=== PATIENT | female | born 1945 | race Caucasian/White ===

== ENCOUNTER 2016-08-21 15:44 | Inpatient (IN) | payer OTHER ==
[~2016-08-21] VITALS: Ht 157.5 cm; Wt 77.0 kg
[~2016-08-21 15:44] MED LIST: ALPHAGAN P100 DROP/5 BOTH EYES; AMLODIPINE BESY10 MG PO; BUMEX2 MG PO; CLONIDINE HCL0.1 MG PO; CRESTOR40 MG PO; ERGOCALCIF50000 UNIT PO; FISH OIL CONC1000 M1 PO; HYDROCHLOROTHIA25 MG PO; LANTUS 3 M100 UNITS1 SC; LISINOPRIL40 MG PO; NOVOLOG PE100 UNITS/ SC; POTASSIUM CHLO20 ME1 PO; PROAIR HFA8.5 GM IH; SERTRALINE HCL100 MG PO; TENORMIN25 MG PO; ZETIA10 MG PO
[2016-08-21] MEDS ORDERED: NORVASC5 MG PO (16:18)
[2016-08-21] MEDS ORDERED: ZOLOFT100 MG PO (16:19)
[2016-08-21] MEDS ORDERED: AGGRENOX1 CAPSULE PO (16:20)
[2016-08-21] MEDS ORDERED: KLOR-CON SPRIN10 MEQ PO (16:21)
[2016-08-21] MEDS ORDERED: NEURONTIN300 MG PO (16:22)
[2016-08-21] MEDS ORDERED: LANTUS 3 M100 UNITS1 SC (16:23)
[2016-08-21] MEDS ORDERED: NOVOLOG MI100 UNIT/M SQ (16:24)
[2016-08-21 17:44] LABS: EOSINOPHIL (%) 0.6 % (0-5); EOSINOPHIL COUNT 0.1 K/uL (0-0.3); HEMATOCRIT 30.1 % (36.0-46.0); IMMATURE GRANULOCYTE (%) 0.1 % (0.0-0.7); IMMATURE GRANULOCYTE COUNT 0.1 K/uL; LYMPHOCYTE COUNT 1.7 K/uL (1.0-2.8); MCH 32.3 PG (29.0-34.0); MCHC 34.6 G/DL (30.0-36.0); MCV 93.5 FL (83-99); MEAN PLAT.VOLUME 9.5 uM^3 (9.5-12.4); MONOCYTE COUNT 0.5 K/uL (0-0.8); NEUTROPHIL (%) 73.7 % (45-76); NEUTROPHIL COUNT 6.6 K/uL (1.8-6.4); PLATELET COUNT 189 K/uL (156-360); RBC DIS.WIDTH-CV 12.9 % (11.8-14.6); RBC DIS.WIDTH-SD 42.7 % (39-53); RED BLOOD COUNT 3.22 M/uL (3.80-5.20)
[2016-08-21 17:58] LABS: CHLORIDE 105 mEq/L (99-109); POTASSIUM 3.9 mEq/L (3.7-5.4); SODIUM 137 mEq/L (136-147)
[2016-08-21 18:00] LABS: GLUCOSE 288 mg/dL (70-99)
[2016-08-21 18:02] LABS: ANION GAP 12 MEQ/L (2-14); TOTAL BILIRUBIN 0.3 mg/dL (0.0-1.0)
[2016-08-21 18:04] LABS: ALKALINE PHOSPHATASE 52 IU/L (3-129); GFR ESTIMATE (CALCULATED) 19 mL/min/
[2016-08-21 18:05] LABS: UREA NITROGEN (BUN) 27 mg/dL (9-23)
[2016-08-21 18:08] LABS: TROP-I INTERPRETATION POSITIVE
[2016-08-21 18:09] LABS: TROPONIN-I 4.94 ng/mL (0.0-0.30)
[2016-08-21] MEDS ORDERED: ASPERCREME HE70.8 GM TP (18:51)
[2016-08-21 19:16] LABS: INTER. NORMALIZED RATIO 1.1; PTT 21.5 (25-32)
[2016-08-21 20:23] VITALS: BP 186/74
[2016-08-21 21:46] LABS: ALKALINE PHOSPHATASE 41 IU/L (3-129); ANION GAP 9 MEQ/L (2-14); CHLORIDE 105 MEQ/L (99-109); GFR ESTIMATE (CALCULATED) 22 mL/min/; GLUCOSE 202 mg/dL (70-99); POTASSIUM 3.8 MEQ/L (3.7-5.4); SAMPLE HEMOLYSIS CHECK 0; SAMPLE ICTERIC CHECK 0; SAMPLE LIPEMIA CHECK 0; SODIUM 137 MEQ/L (136-147); TOTAL BILIRUBIN 0.3 MG/DL (0.0-1.0); UREA NITROGEN (BUN) 26 mg/dL (9-23)
[2016-08-21 22:54] LABS: POINT-OF-CARE METER ID UU13113781
[2016-08-21 23:30] VITALS: BP 164/74
[2016-08-22 01:04] LABS: TROP-I INTERPRETATION POSITIVE
[2016-08-22 01:08] LABS: TROPONIN-I 4.13 ng/mL (0.0-0.30)
[2016-08-22 03:50] VITALS: BP 156/70
[2016-08-22 06:51] LABS: MCH 31.8 PG (29.0-34.0); MCHC 34.3 G/DL (30.0-36.0); MCV 92.7 FL (83-99); MEAN PLAT.VOLUME 9.7 uM^3 (9.5-12.4); PLATELET COUNT 178 K/uL (156-360); RBC DIS.WIDTH-CV 13.5 % (11.8-14.6); RBC DIS.WIDTH-SD 45.6 % (39-53); RED BLOOD COUNT 3.02 M/uL (3.80-5.20); WHITE BLOOD COUNT 7.5 K/uL (4.1-10.2)
[2016-08-22 07:00] VITALS: BP 186/73
[2016-08-22 07:14] LABS: TROP-I INTERPRETATION POSITIVE
[2016-08-22 07:16] LABS: TROPONIN-I 3.23 ng/mL (0.0-0.30)
[2016-08-22 08:36] LABS: ANION GAP 6 MEQ/L (2-14); CHLORIDE 106 MEQ/L (99-109); GFR ESTIMATE (CALCULATED) 20 mL/min/; POTASSIUM 3.3 MEQ/L (3.7-5.4); SAMPLE HEMOLYSIS CHECK 0; SAMPLE ICTERIC CHECK 0; SAMPLE LIPEMIA CHECK 0; SODIUM 140 MEQ/L (136-147); UREA NITROGEN (BUN) 25 mg/dL (9-23)
[2016-08-22 08:37] LABS: GLUCOSE 67 mg/dL (70-99)
[2016-08-22 11:25] LABS: POINT-OF-CARE METER ID UU14174216
[2016-08-22 11:30] VITALS: BP 167/68
[2016-08-22 13:09] LABS: CK-MB 7.9 ng/mL (0.0-4.9)
[2016-08-22 13:33] LABS: HDL CHOLESTEROL 42 MG/DL (Desirable>=50); LDL CHOLESTEROL 31 mg/dL (Desirable<100); NON-HDL CHOLESTEROL 49 mg/dL (Desirable<160); TOTAL CHOLESTEROL 91 mg/dL (Desirable<200); TRIGLYCERIDES 90 MG/DL (Normal: <150)
[2016-08-22 14:58] LABS: CREATINE KINASE 233 IU/L (1-294); TOTAL CK 233 IU/L (1-294)
[2016-08-22 16:30] VITALS: BP 170/74
[2016-08-22 16:37] LABS: ADD MIUA? YES; BILIRUBIN NEGATIVE; BLOOD SMALL; COLOR YELLOW ((YELLOW)); GLUCOSE (STRIP) 250; KETONES NEGATIVE; LEUKOCYTES NEGATIVE; NITRITE NEGATIVE; PH, URINE 5.5 (5-8); PROTEIN (STRIP) 300; UROBILINOGEN 0.2 MG/DL (0.2-1.0)
[2016-08-22 16:39] LABS: BACTERIA NONE SEEN; CASTS NONE SEEN /LPF; CRYSTALS NONE SEEN; EPITHELIAL CELLS 1+; MUCUS NONE SEEN; PATHOLOGICAL CAST NONE SEEN; SMALL ROUND CELL NONE SEEN; UCUL ADDED? NO; WHITE BLOOD CELLS 0-5 /HPF (0-5); YEAST-LIKE CELL NONE SEEN
[2016-08-22 16:44] LABS: POINT-OF-CARE METER ID UU14174216
[2016-08-22 19:45] VITALS: BP 164/76
[2016-08-22 21:10] LABS: POINT-OF-CARE METER ID UU14174216
[2016-08-22 23:00] VITALS: BP 146/64
[2016-08-23 03:00] VITALS: BP 174/60
[2016-08-23 04:01] LABS: EOSINOPHIL (%) 4.4 % (0-5); EOSINOPHIL COUNT 0.4 K/uL (0-0.3); HEMATOCRIT 26.7 % (36.0-46.0); IMMATURE GRANULOCYTE (%) 0.1 % (0.0-0.7); IMMATURE GRANULOCYTE COUNT 0.1 K/uL; LYMPHOCYTE COUNT 4.1 K/uL (1.0-2.8); MCH 31.7 PG (29.0-34.0); MCHC 33.3 G/DL (30.0-36.0); MEAN PLAT.VOLUME 10.1 uM^3 (9.5-12.4); MONOCYTE (%) 6.8 % (3-12); MONOCYTE COUNT 0.6 K/uL (0-0.8); NEUTROPHIL (%) 44.2 % (45-76); NEUTROPHIL COUNT 4.1 K/uL (1.8-6.4); PLATELET COUNT 201 K/uL (156-360); RBC DIS.WIDTH-CV 13.3 % (11.8-14.6); RED BLOOD COUNT 2.81 M/uL (3.80-5.20); WHITE BLOOD COUNT 9.3 K/uL (4.1-10.2)
[2016-08-23 04:12] LABS: CHLORIDE 111 mEq/L (99-109); POTASSIUM 3.6 mEq/L (3.7-5.4); SODIUM 140 mEq/L (136-147)
[2016-08-23 04:14] LABS: GLUCOSE 48 mg/dL (70-99)
[2016-08-23 04:15] LABS: ANION GAP 9 MEQ/L (2-14)
[2016-08-23 04:18] LABS: GFR ESTIMATE (CALCULATED) 22 mL/min/; UREA NITROGEN (BUN) 26 mg/dL (9-23)
[2016-08-23 07:12] LABS: Estimated Average Glucose 258 mg/dL (70-123); HEMOGLOBIN A1c (GLYCOHEMOGLOB) 10.6 % HGB (Below 5.7)
[2016-08-23 07:15] VITALS: BP 170/72
[2016-08-23 11:08] LABS: POINT-OF-CARE METER ID UU14174216
[2016-08-23 11:30] VITALS: BP 152/71
[2016-08-23 16:15] VITALS: BP 156/80
[2016-08-23 19:54] VITALS: BP 165/72
[2016-08-24 00:22] VITALS: BP 138/67
[2016-08-24 04:05] VITALS: BP 158/66
[2016-08-24 06:59] LABS: EOSINOPHIL (%) 5.2 % (0-5); EOSINOPHIL COUNT 0.3 K/uL (0-0.3); HEMATOCRIT 25.9 % (36.0-46.0); IMMATURE GRANULOCYTE (%) 0.3 % (0.0-0.7); LYMPHOCYTE COUNT 1.6 K/uL (1.0-2.8); MCH 31.9 PG (29.0-34.0); MCHC 33.2 G/DL (30.0-36.0); MCV 95.9 FL (83-99); MEAN PLAT.VOLUME 10.1 uM^3 (9.5-12.4); MONOCYTE (%) 10.3 % (3-12); MONOCYTE COUNT 0.6 K/uL (0-0.8); NEUTROPHIL (%) 57.3 % (45-76); NEUTROPHIL COUNT 3.4 K/uL (1.8-6.4); PLATELET COUNT 146 K/uL (156-360); RBC DIS.WIDTH-CV 13.8 % (11.8-14.6); RBC DIS.WIDTH-SD 48.8 % (39-53)
[2016-08-24 07:00] LABS: WHITE BLOOD COUNT 5.9 K/uL (4.1-10.2)
[2016-08-24 07:40] VITALS: BP 150/78
[2016-08-24 08:09] LABS: ANION GAP 9 MEQ/L (2-14); CHLORIDE 111 MEQ/L (99-109); GFR ESTIMATE (CALCULATED) 22 mL/min/; POTASSIUM 3.9 MEQ/L (3.7-5.4); SAMPLE HEMOLYSIS CHECK 0; SAMPLE ICTERIC CHECK 0; SAMPLE LIPEMIA CHECK 0; SODIUM 144 MEQ/L (136-147); UREA NITROGEN (BUN) 25 mg/dL (9-23)
[2016-08-24 08:10] LABS: GLUCOSE 82 mg/dL (70-99)
[2016-08-24 08:11] LABS: POINT-OF-CARE USER ID ENVKC36
[2016-08-24 09:46] LABS: POINT-OF-CARE METER ID UU13113696
[2016-08-24 15:00] VITALS: BP 158/66; BP 162/74
[2016-08-24 16:37] LABS: POINT-OF-CARE USER ID ENVKC36
[2016-08-24 19:41] VITALS: BP 158/64
[2016-08-24 23:42] VITALS: BP 140/68
[2016-08-25 04:08] VITALS: BP 158/68
[2016-08-25 06:43] LABS: EOSINOPHIL (%) 6.3 % (0-5); EOSINOPHIL COUNT 0.4 K/uL (0-0.3); HEMATOCRIT 27.4 % (36.0-46.0); IMMATURE GRANULOCYTE (%) 0.2 % (0.0-0.7); LYMPHOCYTE COUNT 2.1 K/uL (1.0-2.8); MCH 32.9 PG (29.0-34.0); MCHC 33.9 G/DL (30.0-36.0); MCV 96.8 FL (83-99); MEAN PLAT.VOLUME 10.2 uM^3 (9.5-12.4); MONOCYTE (%) 7.5 % (3-12); MONOCYTE COUNT 0.5 K/uL (0-0.8); NEUTROPHIL (%) 53.4 % (45-76); NEUTROPHIL COUNT 3.5 K/uL (1.8-6.4); PLATELET COUNT 170 K/uL (156-360); RBC DIS.WIDTH-CV 13.8 % (11.8-14.6); RBC DIS.WIDTH-SD 48.7 % (39-53); RED BLOOD COUNT 2.83 M/uL (3.80-5.20); WHITE BLOOD COUNT 6.5 K/uL (4.1-10.2)
[2016-08-25 07:00] LABS: ANION GAP 8 MEQ/L (2-14); CHLORIDE 109 MEQ/L (99-109); GFR ESTIMATE (CALCULATED) 25 mL/min/; GLUCOSE 87 mg/dL (70-99); POTASSIUM 3.8 MEQ/L (3.7-5.4); SAMPLE HEMOLYSIS CHECK 0; SAMPLE ICTERIC CHECK 0; SAMPLE LIPEMIA CHECK 0; SODIUM 142 MEQ/L (136-147); UREA NITROGEN (BUN) 24 mg/dL (9-23)
[2016-08-25 07:55] VITALS: BP 147/68
[2016-08-25 08:17] LABS: POINT-OF-CARE USER ID ENVKC36
[2016-08-25 11:51] LABS: POINT-OF-CARE USER ID ENVKC36
[2016-08-25 12:00] VITALS: BP 130/80
[2016-08-25 15:00] VITALS: BP 134/76
[2016-08-25 16:53] LABS: POINT-OF-CARE USER ID ENVKC36
[2016-08-25 21:00] VITALS: BP 160/68
[2016-08-26 00:10] VITALS: BP 145/66
[2016-08-26 03:59] VITALS: BP 134/66
[2016-08-26 07:43] VITALS: BP 162/66
[2016-08-26 08:01] LABS: POINT-OF-CARE METER ID UU13113698
[2016-08-26 10:45] LABS: POINT-OF-CARE METER ID UU13113698
[2016-08-26 11:37] VITALS: BP 158/64
[2016-08-26 12:20] VITALS: BP 158/64
[2016-08-26] MEDS ORDERED: AMLODIPINE BESY10 MG PO (15:56)
[2016-08-26] MEDS ORDERED: LOPRESSOR25 MG PO (15:56)
[2016-08-26] MEDS ORDERED: APRESOLINE25 MG PO (15:56)
[2016-08-26] MEDS ORDERED: ASPIR-LOW81 MG PO (15:57)
[2016-08-26] MEDS ORDERED: LEVEMIR100 UNIT/2 SC ×2 (15:58)
[2016-08-26 16:50] LABS: POINT-OF-CARE METER ID UU13113698
[2016-08-26 17:30] VITALS: BP 152/66
== END 2016-08-26 19:16 | DRG 281 ==
LOC: EME 15:44 → 4EAST 18:53 → EDOF 18:53 → 4EAST 20:07
PROVIDERS: Emergency Medicine; Internal Medicine; Internal Medicine Cardiovascular Disease; Student in an Organized Health Care Education/Training Program
DX: I21.4 Non-ST elevation (NSTEMI) myocardial infarction (principal); I69.351 Hemiplegia and hemiparesis following cerebral infarction affecting right dominant side; N18.4 Chronic kidney disease, stage 4 (severe); Z79.82 Long term (current) use of aspirin; E78.2 Mixed hyperlipidemia; R53.1 Weakness; G62.9 Polyneuropathy, unspecified; I12.9 Hypertensive chronic kidney disease with stage 1 through stage 4 chronic kidney disease, or unspecified chronic kidney disease; I25.10 Atherosclerotic heart disease of native coronary artery without angina pectoris; E13.22 Other specified diabetes mellitus with diabetic chronic kidney disease; R29.6 Repeated falls; E78.5 Hyperlipidemia, unspecified; Z66 Do not resuscitate; Q24.5 Malformation of coronary vessels
CPT/HCPCS: 71020; 80048; 80053; 80061; 81003; 82550; 82553; 82948; 83036; 83880; 84484; 85025; 85027; 85610; 85730; 93005; 93306; 99202; 99281; 99285; C1769; C1887; J0360; J1644; J1815; J2250; J3010; J7030; J7050

== ENCOUNTER 2016-12-31 18:43 | Inpatient (IN) | payer OTHER ==
[~2016-12-31] VITALS: Ht 157.5 cm; Wt 86.4 kg
[~2016-12-31 18:43] MED LIST changes: +AGGRENOX1 CAPSULE PO; +APRESOLINE25 MG PO; +ASPERCREME HE70.8 GM TP; +ASPIR-LOW81 MG PO; +KLOR-CON SPRIN10 MEQ PO; +LEVEMIR100 UNIT/2 SC; +LOPRESSOR25 MG PO; +NEURONTIN300 MG PO; +NORVASC5 MG PO; +NOVOLOG MI100 UNIT/M SQ; +ZOLOFT100 MG PO
[2016-12-31 19:17] LABS: HEMATOCRIT 24.7 % (36.0-46.0); MCH 31.7 PG (29.0-34.0); MCHC 33.6 G/DL (30.0-36.0); MCV 94.3 FL (83-99); MEAN PLAT.VOLUME 9.3 uM^3 (9.5-12.4); PLATELET COUNT 176 K/uL (156-360); RBC DIS.WIDTH-CV 13.9 % (11.8-14.6); RBC DIS.WIDTH-SD 47.8 % (39-53); RED BLOOD COUNT 2.62 M/uL (3.80-5.20); WHITE BLOOD COUNT 8.3 K/uL (4.1-10.2)
[2016-12-31] MEDS ORDERED: APRESOLINE50 MG PO (19:25)
[2016-12-31] MEDS ORDERED: ASCORBIC ACID250 MG PO (19:26)
[2016-12-31 19:29] LABS: CHLORIDE 103 mEq/L (99-109); POTASSIUM 3.5 mEq/L (3.7-5.4); SODIUM 141 mEq/L (136-147)
[2016-12-31] MEDS ORDERED: DULCOLAX5 MG PO (19:30)
[2016-12-31 19:31] LABS: GLUCOSE 100 mg/dL (70-99)
[2016-12-31] MEDS ORDERED: DOCUSATE SODIU100 M1 PO (19:31)
[2016-12-31 19:33] LABS: ANION GAP 11 MEQ/L (2-14)
[2016-12-31] MEDS ORDERED: FEROSUL325 MG PO (19:33)
[2016-12-31] MEDS ORDERED: LASIX40 MG PO (19:34)
[2016-12-31 19:35] LABS: GFR ESTIMATE (CALCULATED) 20 mL/min/
[2016-12-31 19:36] LABS: UREA NITROGEN (BUN) 44 mg/dL (9-23)
[2016-12-31] MEDS ORDERED: LEVEMIR FL100 UNIT/1 SC ×3 (19:36→19:38)
[2016-12-31] MEDS ORDERED: VITAMIN D2000 UNI1 PO (19:40)
[2016-12-31] MEDS ORDERED: VITAMIN D2000 UNIT PO (19:40)
[2016-12-31 19:43] LABS: TROP-I INTERPRETATION POSITIVE; TROPONIN-I 11.16 ng/mL (0.0-0.30)
[2016-12-31] MEDS ORDERED: ACETAMINOPHEN325 M1 PO (19:43)
[2016-12-31] MEDS ORDERED: DUCODYL5 MG PO (19:45)
[2016-12-31 21:25] LABS: PROTHROMBIN TIME 10.6 (9.2-11.2); PTT 24.7 (25-32)
[2016-12-31 23:00] VITALS: BP 163/67
[2017-01-01] VITALS (11 sets, daily range): BP systolic 130–199; BP diastolic 60–80
[2017-01-01 01:36] LABS: TROP-I INTERPRETATION POSITIVE
[2017-01-01 06:28] LABS: MCHC 33.5 G/DL (30.0-36.0); MCV 95.4 FL (83-99); PLATELET COUNT 177 K/uL (156-360); RBC DIS.WIDTH-CV 13.9 % (11.8-14.6); RBC DIS.WIDTH-SD 48.7 % (39-53); RED BLOOD COUNT 2.41 M/uL (3.80-5.20); WHITE BLOOD COUNT 7.4 K/uL (4.1-10.2)
[2017-01-01 06:58] LABS: METH RESISTANT S AUREUS PCR NEGATIVE (NEGATIVE)
[2017-01-01 06:59] LABS: PROBE CHECK PASS; SPECIMEN PROCESSING CONTROL PASS
[2017-01-01 07:02] LABS: TROPONIN-I 6.69 ng/mL (0.0-0.30)
[2017-01-01 07:03] LABS: ANION GAP 8 MEQ/L (2-14); CHLORIDE 103 MEQ/L (99-109); GFR ESTIMATE (CALCULATED) 19 mL/min/; POTASSIUM 3.3 MEQ/L (3.7-5.4); SAMPLE HEMOLYSIS CHECK 0; SAMPLE ICTERIC CHECK 0; SAMPLE LIPEMIA CHECK 0; SODIUM 142 MEQ/L (136-147); TROP-I INTERPRETATION POSITIVE; UREA NITROGEN (BUN) 43 mg/dL (9-23)
[2017-01-01 07:06] LABS: GLUCOSE 69 mg/dL (70-99)
[2017-01-01 07:50] LABS: POINT-OF-CARE USER ID NUTSLF44
[2017-01-01 11:23] LABS: POINT-OF-CARE USER ID NUTSLF44
[2017-01-01 16:52] LABS: POINT-OF-CARE USER ID NUTSLF44
[2017-01-02] VITALS (7 sets, daily range): BP systolic 122–197; BP diastolic 52–86
[2017-01-02 06:38] LABS: ANION GAP 11 MEQ/L (2-14); CHLORIDE 102 MEQ/L (99-109); GFR ESTIMATE (CALCULATED) 18 mL/min/; POTASSIUM 3.3 MEQ/L (3.7-5.4); SAMPLE HEMOLYSIS CHECK 0; SAMPLE ICTERIC CHECK 0; SAMPLE LIPEMIA CHECK 0; SODIUM 140 MEQ/L (136-147); UREA NITROGEN (BUN) 45 mg/dL (9-23)
[2017-01-02 06:42] LABS: GLUCOSE 155 mg/dL (70-99)
[2017-01-02 06:43] LABS: HEMATOCRIT 29.1 % (36.0-46.0); MCH 30.7 PG (29.0-34.0); MCHC 33.3 G/DL (30.0-36.0); MCV 92.1 FL (83-99); MEAN PLAT.VOLUME 9.7 uM^3 (9.5-12.4); PLATELET COUNT 172 K/uL (156-360); RBC DIS.WIDTH-CV 15.6 % (11.8-14.6); RBC DIS.WIDTH-SD 52.8 % (39-53); WHITE BLOOD COUNT 7.6 K/uL (4.1-10.2)
[2017-01-02 06:55] LABS: RED BLOOD COUNT 3.16 M/uL (3.80-5.20)
[2017-01-02 08:18] LABS: POINT-OF-CARE USER ID NUTSLF44
[2017-01-02 11:49] LABS: POINT-OF-CARE METER ID UU13113781; POINT-OF-CARE USER ID NUTSLF44
[2017-01-02 13:01] LABS: TROP-I INTERPRETATION POSITIVE; TROPONIN-I 2.79 ng/mL (0.0-0.30)
[2017-01-02 16:46] LABS: POINT-OF-CARE USER ID NUTSLF44
[2017-01-03] VITALS (8 sets, daily range): BP systolic 142–194; BP diastolic 48–76
[2017-01-03 05:18] LABS: HEMATOCRIT 26.7 % (36.0-46.0); MCH 31.6 PG (29.0-34.0); MCHC 33.7 G/DL (30.0-36.0); MCV 93.7 FL (83-99); MEAN PLAT.VOLUME 10.2 uM^3 (9.5-12.4); PLATELET COUNT 164 K/uL (156-360); RBC DIS.WIDTH-CV 15.5 % (11.8-14.6); RBC DIS.WIDTH-SD 53.5 % (39-53); RED BLOOD COUNT 2.85 M/uL (3.80-5.20); WHITE BLOOD COUNT 7.5 K/uL (4.1-10.2)
[2017-01-03 07:09] LABS: ANION GAP 10 MEQ/L (2-14); CHLORIDE 104 MEQ/L (99-109); GFR ESTIMATE (CALCULATED) 18 mL/min/; GLUCOSE 149 mg/dL (70-99); POTASSIUM 3.3 MEQ/L (3.7-5.4); SAMPLE HEMOLYSIS CHECK 0; SAMPLE ICTERIC CHECK 0; SAMPLE LIPEMIA CHECK 0; SODIUM 141 MEQ/L (136-147); UREA NITROGEN (BUN) 48 mg/dL (9-23)
[2017-01-03 07:42] LABS: POINT-OF-CARE METER ID UU13113781
[2017-01-03 20:52] LABS: POINT-OF-CARE METER ID UU13113781
[2017-01-04 04:57] VITALS: BP 134/84
[2017-01-04 07:02] LABS: HEMATOCRIT 27.5 % (36.0-46.0); MCH 31.8 PG (29.0-34.0); MCHC 33.8 G/DL (30.0-36.0); MCV 94.2 FL (83-99); MEAN PLAT.VOLUME 10.2 uM^3 (9.5-12.4); PLATELET COUNT 168 K/uL (156-360); RBC DIS.WIDTH-CV 14.9 % (11.8-14.6); RBC DIS.WIDTH-SD 51.8 % (39-53); RED BLOOD COUNT 2.92 M/uL (3.80-5.20); WHITE BLOOD COUNT 6.5 K/uL (4.1-10.2)
[2017-01-04 07:29] VITALS: BP 170/68
[2017-01-04 07:57] LABS: POINT-OF-CARE METER ID UU13113781
[2017-01-04 08:03] LABS: ANION GAP 8 MEQ/L (2-14); CHLORIDE 105 MEQ/L (99-109); GFR ESTIMATE (CALCULATED) 19 mL/min/; GLUCOSE 116 mg/dL (70-99); POTASSIUM 3.4 MEQ/L (3.7-5.4); SAMPLE HEMOLYSIS CHECK 0; SAMPLE ICTERIC CHECK 0; SAMPLE LIPEMIA CHECK 0; SODIUM 141 MEQ/L (136-147); UREA NITROGEN (BUN) 42 mg/dL (9-23)
[2017-01-04 11:02] VITALS: BP 160/66
[2017-01-04] MEDS ORDERED: CLOPIDOGREL75 MG PO (11:18)
[2017-01-04] MEDS ORDERED: HYDRALAZINE HCL25 MG PO (11:19)
[2017-01-04] MEDS ORDERED: LOPRESSOR25 MG PO (11:20)
[2017-01-04] MEDS ORDERED: NIFEDIPINE ER30 MG PO (11:24)
== END 2017-01-04 14:33 | DRG 281 ==
LOC: EME 18:43 → EDOF 21:11 → 4EAST 21:11
PROVIDERS: Emergency Medicine; Hospitalist; Internal Medicine
PROC: 30233N1 Transfusion of Nonautologous Red Blood Cells into Peripheral Vein, Percutaneous Approach (ICD-10-PCS; principal; 2017-01-01)
DX: I21.4 Non-ST elevation (NSTEMI) myocardial infarction (principal); I13.0 Hypertensive heart and chronic kidney disease with heart failure and stage 1 through stage 4 chronic kidney disease, or unspecified chronic kidney disease; N18.3 Chronic kidney disease, stage 3 (moderate); I50.9 Heart failure, unspecified; Z66 Do not resuscitate; Z51.5 Encounter for palliative care; E11.42 Type 2 diabetes mellitus with diabetic polyneuropathy; D64.9 Anemia, unspecified; E78.5 Hyperlipidemia, unspecified; I25.10 Atherosclerotic heart disease of native coronary artery without angina pectoris; J45.909 Unspecified asthma, uncomplicated; F32.9 Major depressive disorder, single episode, unspecified; E66.9 Obesity, unspecified; Z68.34 Body mass index [BMI] 34.0-34.9, adult; I69.351 Hemiplegia and hemiparesis following cerebral infarction affecting right dominant side; I25.2 Old myocardial infarction
CPT/HCPCS: 71020; 80048; 82948; 84484; 85027; 85610; 85730; 86900; 86901; 86920; 87641; 93005; 99281; 99285; J0360; J1815; P9016